=== PATIENT | female | born 1960 | race Caucasian/White ===

== ENCOUNTER 2018-01-27 09:29 | Emergency (ER) | payer MEDICARE, MEDICAID, SELFPAY ==
[2018-01-27 09:30] VITALS: BP 115/84; PULSE 93; RESP 16; TEMP 36.6; O2SAT 98; BMI 18.7
--- NOTE | 2018-01-27 10:02 | RAD_ITS ---
STUDY: X-RAY - LEFT WRIST REASON FOR EXAM: Fall, history of previous fracture. TECHNIQUE: 3 view(s) of the wrist were obtained. COMPARISON: None. FINDINGS: Normal visualized distal radius and ulna. Normal radiocarpal articulation. Normal distal radioulnar articulation. There is a subchondral cyst in the distal pole of the scaphoid. Otherwise, unremarkable carpal bones. Normal carpal articulations. Normal carpometacarpal articulation of the thumb. Normal second through fifth carpometacarpal articulations. Normal visualized metacarpal bones. The soft tissue structures are unremarkable. RAD/Wrist min 3 Views IMPRESSION: Subchondral cyst of the distal pole of the scaphoid. No demonstrated recent fracture. Electronically Signed: Augie Almanza MD at 11:17 EDT Tel , Service support ,
[2018-01-27] MEDS: Naproxen 250 MG Tablet 500 MG PO (10:13)
[2018-01-27] MEDS: HYDROcodone Bitartrate/Apap 5/325 Tablet PO (10:14)
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
[2018-01-27 11:18] VITALS: BP 110/82; PULSE 81; RESP 14; O2SAT 98
== END 2018-01-27 11:19 | disposition home or self-care (01) ==
PROVIDERS: Emergency Provider Emergency Medicine
DX: S60.212A Contusion of left wrist, initial encounter (principal); S16.1XXA Strain of muscle, fascia and tendon at neck level, initial encounter; S46.811A Strain of other muscles, fascia and tendons at shoulder and upper arm level, right arm, initial encounter; K21.9 Gastro-esophageal reflux disease without esophagitis; W18.40XA Slipping, tripping and stumbling without falling, unspecified, initial encounter; Y93.9 Activity, unspecified; Y92.9 Unspecified place or not applicable; Z72.0 Tobacco use; Z79.899 Other long term (current) drug therapy
CPT/HCPCS: 73110; 99283

== ENCOUNTER → 2018-03-05 15:32 | Outpatient (CLI) | payer MEDICARE, MEDICAID, SELFPAY ==
[2018-03-05 18:25] LABS: Amphetamine Urine VISTA NEGATIVE (<1000 ng/mL); Barbiturate Urine VISTA POSITIVE (< 200 ng/mL); Benzodiazepine Urine VISTA NEGATIVE (< 200 ng/mL); Cocaine Urine VISTA NEGATIVE (< 300 ng/mL); Ecstacy Urine VISTA NEGATIVE (< 500 ng/mL); Methadone Urine VISTA NEGATIVE (< 300 ng/mL); PCP Urine VISTA NEGATIVE (< 25 ng/mL); THC Urine VISTA NEGATIVE (< 50 ng/mL); Vista UDS pH Range 6
== END ==
PROVIDERS: Family Provider Internal Medicine; PCP Internal Medicine; Visit Provider Anesthesiology Pain Medicine
DX: F11.20 Opioid dependence, uncomplicated (principal)
CPT/HCPCS: 80307

== ENCOUNTER → 2018-06-12 13:36 | Outpatient (CLI) | payer MEDICARE, MEDICAID, SELFPAY ==
[2018-06-12 15:53] LABS: Amphetamine Urine VISTA POSITIVE (<1000 ng/mL); Barbiturate Urine VISTA NEGATIVE (< 200 ng/mL); Benzodiazepine Urine VISTA NEGATIVE (< 200 ng/mL); Cocaine Urine VISTA NEGATIVE (< 300 ng/mL); Ecstacy Urine VISTA NEGATIVE (< 500 ng/mL); Methadone Urine VISTA NEGATIVE (< 300 ng/mL); PCP Urine VISTA NEGATIVE (< 25 ng/mL); THC Urine VISTA NEGATIVE (< 50 ng/mL); Vista UDS pH Range 5
== END ==
PROVIDERS: Family Provider Internal Medicine; PCP Internal Medicine; Visit Provider Anesthesiology Pain Medicine
DX: F11.20 Opioid dependence, uncomplicated (principal)
CPT/HCPCS: 80307

== ENCOUNTER → 2018-07-02 08:23 | Outpatient (CLI) | payer MEDICARE, MEDICAID, SELFPAY ==
--- NOTE | 2018-07-02 08:50 | BD_ITS ---
STUDY: DUAL ENERGY X-RAY ABSORPTIOMETRY / DXA REASON FOR EXAM: Female, 58 years old. Dictation is postmenopausal. No loss of height. Prior gastric bypass surgery. TECHNIQUE: Bone Mineral Density (BMD) measurements of lumbar spine and bilateral hips were obtained. COMPARISON: None. FINDINGS: Lumbar Spine (L1-L4): g/cm2 (0.724) / T-score (-3.8) / Z-score (-2.8) Findings are suggestive of osteoporosis with a high fracture risk. Left Femur Total: g/cm2 (0.652) / T-score (-2.8) / Z-score (-2.1) Left Femoral Neck: g/cm2 (0.737) / T-score (-2.2) / Z-score (-1.1) Right Femur Total: g/cm2 (0.655) / T-score (-2.8) / Z-score (-2.0) Right Femoral Neck: g/cm2 (0.834) / T-score (-1.5) / Z-score (-0.4) BD/Dexa Bone Density Study IMPRESSION: The patient is considered osteoporotic as outlined below according to World Min Organization (WHO) criteria with a high fracture risk. Reference Information: The T-score is the number of standard deviations above or below the standard which is normal for young adults at their peak bone mineral density. The World Health Organization (WHO) interprets the T-scores as follows: Above -1 Normal bone density Between -1 and -2.5 Osteopenia Equal to / or below -2.5 Osteoporosis As a practical clinical guideline, osteopenia may be graded as follows: Mild -1 through -1.5 Moderate -1.6 through -2.0 Severe -2.1 through -2.4 The Z-score is the number of standard deviations above or below age-matched controls. A Z-score of less than -1.5 would be considered abnormal. References: 1. NIH Osteoporosis and Related Bone Diseases http://www.osteo.org 2. International Society for Clinical Densitometry http://www.iscd.org 3. National Osteoporosis Foundation http://www.nof.org Electronically Signed: Fredy Aguilera MD at 10:42 EDT Tel [phone], Service support ,
== END ==
PROVIDERS: Family Provider Internal Medicine; PCP Internal Medicine; Visit Provider Internal Medicine
DX: M81.0 Age-related osteoporosis without current pathological fracture (principal)
CPT/HCPCS: 77080

== ENCOUNTER 2019-01-05 07:44 | Emergency (ER) | payer MEDICARE, MEDICAID, SELFPAY ==
[2018-11-04 14:56] VITALS: BMI 19.8
[2019-01-05 07:44] VITALS: BP 152/89; PULSE 100; RESP 18; TEMP 36.6; O2SAT 98; BMI 21.2
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
[2019-01-05] MEDS: Ibuprofen 600 MG Tablet PO (09:31)
[2019-01-05 10:15] VITALS: PULSE 90; RESP 16
== END 2019-01-05 10:15 | disposition home or self-care (01) ==
PROVIDERS: Emergency Provider Emergency Medicine
DX: S16.1XXA Strain of muscle, fascia and tendon at neck level, initial encounter (principal); V80.928A Occupant of animal-drawn vehicle injured in other transport accident, initial encounter; Y93.89 Activity, other specified; Y92.410 Unspecified street and highway as the place of occurrence of the external cause; K21.9 Gastro-esophageal reflux disease without esophagitis; Z72.0 Tobacco use
CPT/HCPCS: 72125; 99283; A4216

== ENCOUNTER 2019-04-22 10:39 | Emergency (ER) | payer MEDICARE, MEDICAID, OTHER, SELFPAY ==
[2019-04-22 10:40] VITALS: BP 119/82; PULSE 99; RESP 16; TEMP 36.9; BMI 21.2
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
[2019-04-22] MEDS: HYDROcodone Bitartrate/Apap 5/325 Tablet PO (11:31)
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
[2019-04-22 12:38] VITALS: BP 110/78; PULSE 89; RESP 16; O2SAT 98
== END 2019-04-22 12:40 | disposition home or self-care (01) ==
PROVIDERS: Emergency Provider Emergency Medicine; Family Provider Internal Medicine; PCP Internal Medicine
DX: S73.102A Unspecified sprain of left hip, initial encounter (principal); X50.1XXA Overexertion from prolonged static or awkward postures, initial encounter; Y93.9 Activity, unspecified; Y92.9 Unspecified place or not applicable; M54.9 Dorsalgia, unspecified; G89.29 Other chronic pain; K21.9 Gastro-esophageal reflux disease without esophagitis; G43.909 Migraine, unspecified, not intractable, without status migrainosus; K58.9 Irritable bowel syndrome, unspecified; M81.0 Age-related osteoporosis without current pathological fracture; Z79.899 Other long term (current) drug therapy; Z72.0 Tobacco use
CPT/HCPCS: 72100; 73502; 99283

== ENCOUNTER → 2019-07-07 13:06 | Outpatient (CLI) | payer MEDICARE, MEDICAID, SELFPAY ==
[2019-07-01 11:09] VITALS: BMI 21.2
--- NOTE | 2019-07-07 13:11 | RAD_ITS ---
STUDY: X-RAY - RIGHT HAND REASON FOR EXAM: Female, 59 years old. Hand pain around first MCP area. TECHNIQUE: 3 view(s) of the hand. COMPARISON: None. FINDINGS: There is joint space narrowing of the radiocarpal articulation consistent with degenerative arthrosis. Normal distal radioulnar joint. Normal visualized carpal bones. Normal carpal articulations Normal carpometacarpal articulation of the thumb. Normal second through fifth carpometacarpal joints. Normal metacarpi. There is degenerative arthrosis of the metacarpophalangeal (MCP) joints. There is mild degenerative arthrosis of the interphalangeal joint of the thumb with articular joint space narrowing. Normal proximal and distal phalanges of the thumb. Normal metacarpophalangeal joints of the second through fifth fingers. There is mild diffuse articular joint space narrowing of the proximal and distal interphalangeal joints of the second through fifth fingers, but without erosive changes or periarticular soft tissue swelling. Normal phalanges of the second through fifth fingers. The soft tissue structures are unremarkable. RAD/Hand Min 3 Views IMPRESSION: Degenerative joint disease of the hand and wrist, as described above. Electronically Signed: Anat Head MD at 16:57 EDT Tel , Service support ,
== END ==
PROVIDERS: Family Provider Internal Medicine; PCP Internal Medicine; Referring Provider Nurse Practitioner Family; Visit Provider Nurse Practitioner Family
DX: M79.641 Pain in right hand (principal); M79.644 Pain in right finger(s)
CPT/HCPCS: 73130

== ENCOUNTER → 2019-09-09 12:46 | Outpatient (CLI) | payer MEDICARE, MEDICAID, SELFPAY ==
[2019-09-07 10:08] VITALS: BMI 21.2
[2019-09-09 14:02] LABS: Rheumatoid Factor < 10.0 IU/mL (<15)
[2019-09-10 15:50] LABS: ANTINUCLEAR ANTIBODIES DIRECT Negative (Negative)
== END ==
PROVIDERS: Family Provider Internal Medicine; PCP Internal Medicine; Referring Provider Internal Medicine; Visit Provider Internal Medicine
DX: M19.90 Unspecified osteoarthritis, unspecified site (principal); Z13.828 Encounter for screening for other musculoskeletal disorder
CPT/HCPCS: 36415; 86038; 86225; 86235; 86431

== ENCOUNTER 2019-11-17 11:00 | Outpatient (RCR) | payer MEDICARE, SELFPAY ==
[2019-09-07 10:08] VITALS: BMI 21.2
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
--- NOTE | 2020-01-20 15:27 | HP.PT.NRP ---
EFE TREVINO was seen in my office for initial evaluation on 10/08/19. The following Plan of Care was established for this patient: Initial Frequency: 2x /Week Initial Duration: 4 Weeks Patient/Client Instruction: Educate patient on: Condition, Plan of Care For the Purpose of:: To decrease pain, To increase ROM, To improve muscle performance and motor function, To improve ability to perform ADL's, To increase tolerance to activity/condition/position, To improve ability of physical actions for home/community/work/leisure, To improve health of tissue, To decrease soft tissue restriction, To increase flexibility/ROM, To reduce risk of recurrence, To improve ability to perform tasks related to life management Therapeutic Exercise to Include: Strength training, Body mechanics, Postural training, Flexibilty training, In an aquatic setting, Active ROM, Dynamic Lumbar Stabilization For the Purpose of:: To decrease pain, To increase ROM, To improve muscle performance and motor function, To improve ability to perform ADL's, To increase tolerance to activity/condition/position, To improve ability of physical actions for home/community/work/leisure, To improve health of tissue, To decrease soft tissue restriction, To increase flexibility/ROM, To improve ability to perform tasks related to life management This patient was last seen in our office 11/17/19. Pertinent comments regarding their Physical therapy will appear below: Patient seen for Aquatic therapy ,thus is d/c due to not returning. At this point I will be discontinuing this patient from physical therapy. I would be happy to see this patient again in the future if found appropriate by the physician. Thank you! Mlio Mccoy, PT, Cert MDT, OCS
== END 2019-11-17 19:00 | disposition home or self-care (01) ==
LOC: PT 11:00
PROVIDERS: Family Provider Internal Medicine; PCP Internal Medicine; Referring Provider Anesthesiology Pain Medicine; Visit Provider Anesthesiology Pain Medicine
DX: M46.92 Unspecified inflammatory spondylopathy, cervical region (principal); M50.30 Other cervical disc degeneration, unspecified cervical region; M54.16 Radiculopathy, lumbar region; M51.36 Other intervertebral disc degeneration, lumbar region; M46.96 Unspecified inflammatory spondylopathy, lumbar region; M79.10 Myalgia, unspecified site; G89.4 Chronic pain syndrome
CPT/HCPCS: 97113; 97162; 97164

== ENCOUNTER → 2019-11-19 10:41 | Outpatient (CLI) | payer MEDICARE, MEDICAID, SELFPAY ==
[2019-09-07 10:08] VITALS: BMI 21.2
--- NOTE | 2019-11-19 10:44 | BI_ITS ---
MAMMOGRAPHY - BILATERAL SCREENING REASON FOR EXAM: Female, 59 years old. Routine annual screening examination. PERTINENT HISTORY: Mother with breast cancer. Remote bilateral excisional breast biopsies. TECHNIQUE: Digital bilateral breast aldair (3D mammographic acquisition) in the CC and MLO projections. 2-D mediolateral oblique (MLO) and craniocaudad (CC) views of both breasts were obtained. CAD: Full Field Digital Mammography with Computer Added Detection was performed. COMPARISON: Comparison is made with prior outside examination dated April 15, 2012. FINDINGS: Breast Composition: The breasts are heterogeneously dense, which may obscure small masses. There are no dominant masses or suspicious calcifications. No other significant abnormalities are identified. There has been no significant change since the prior study. BI/SCREEN MAMM (CAD) W/ALDAIR BILAT IMPRESSION: Stable bilateral screening mammogram. Yearly follow-up mammogram recommended. (A) ASSESSMENT CATEGORY: BIRADS Category 1: Negative. A letter regarding these results will be sent to the patient by the facility within 30 days. Approximately 10% of breast cancers are not detected by mammography. A normal mammogram should not delay biopsy of a clinically suspicious abnormality. [id number] Electronically Signed: Fredy Aguilera, at 12:16 EST , Service support ,
== END ==
PROVIDERS: Family Provider Internal Medicine; PCP Internal Medicine; Referring Provider Internal Medicine; Visit Provider Internal Medicine
DX: Z12.31 Encounter for screening mammogram for malignant neoplasm of breast (principal)
CPT/HCPCS: 77063; 77067

== ENCOUNTER → 2020-05-10 10:23 | Outpatient (CLI) | payer MEDICARE, MEDICAID, SELFPAY ==
[2020-05-09 12:56] VITALS: BMI 21.2
--- NOTE | 2020-05-10 10:24 | RAD_ITS ---
STUDY: X-RAY CHEST REASON FOR EXAM: Female, 59 years old. COUGH, CHEST CONGESTION, FEVER TECHNIQUE: PA and lateral views of the chest. COMPARISON: 2013 FINDINGS: Lungs are expanded, there is subtle opacification in the lingula but this is unchanged in the previous study and likely represents fibrotic scarring. There is no demonstrated pleural abnormality. Normal size heart. Normal mediastinum and brenda. Normal visualized pulmonary arteries. Normal visualized aortic arch and descending thoracic aorta. Normal visualized thoracic spine. Normal visualized ribs, clavicles, and shoulders. There is no demonstrated abnormality of the visualized soft tissue structures of the upper abdomen. RAD/Chest PA and Lateral IMPRESSION: No acute pulmonary process, no interval change Electronically Signed: Armin Rueda MD at 11:00 EDT , Service support ,
== END ==
PROVIDERS: PCP Internal Medicine; Referring Provider Internal Medicine; Visit Provider Internal Medicine
DX: R05 Cough (principal); R09.89 Other specified symptoms and signs involving the circulatory and respiratory systems; R50.9 Fever, unspecified; Z20.828 Contact with and (suspected) exposure to other viral communicable diseases
CPT/HCPCS: 71046; 87635; G2023; U0003

== ENCOUNTER 2021-01-18 13:01 | Emergency (ER) | payer MEDICARE, MEDICAID, SELFPAY ==
[2020-05-09 12:56] VITALS: BMI 21.2
[2021-01-18 13:02] VITALS: BP 156/81; PULSE 88; RESP 18; TEMP 36.6; O2SAT 96; BMI 21.2
--- NOTE | 2021-01-18 13:28 | CT_ITS ---
STUDY: CT CERVICAL SPINE WITHOUT CONTRAST REASON FOR EXAM: Female, 60 years old. Injury/Pain. RADIATION DOSAGE (If Supplied By Facility): CTDIvol = ( 11.97 ) mGy, DLP = ( 195.07 ) mGycm TECHNIQUE: High resolution transaxial imaging was performed without contrast material. Sagittal and coronal images were reconstructed. Individualized dose optimization techniques were used for this CT. COMPARISON: Comparison is made with prior examination dated 01/05/2019. FINDINGS: Normal craniovertebral junction. There are degenerative changes of the anterior atlantoaxial articulation. Normal odontoid process. There is straightening of the normal cervical lordosis. Normal vertebral bodies and posterior osseous elements. C2-3: Minimal anterior listhesis of C2 on C3 most likely secondary to the facet joint osteoarthritis. C3-4: Marked degree of disc space narrowing and mild spondylosis. Uncovertebral arthrosis. Moderate degree of bilateral neural foraminal stenosis slightly worse on the left side. C4-5: Marked degree of disc space narrowing and disc degeneration. Uncovertebral arthrosis. Moderate degree of bilateral neural foraminal stenosis worse on the left side. C5-6: Marked degree of disc space narrowing and spondylosis. Uncovertebral arthrosis. Mild degree of bilateral neural foraminal stenosis. C6-7: Mild degree of disc space narrowing. No significant stenosis is seen. C7-T1: Normal endplates. Normal disc height and morphology. Normal central canal and intervertebral neuroforamina. Normal visualized soft tissue structures. CT/Spine Cervical without Contras IMPRESSION: Multilevel degenerative changes, as described above. Electronically Signed: Fredy Aguilera MD at 14:23 EDT , Service support ,
[2021-01-18] MEDS: morphine 8 MG/ML Syringe IM (13:41)
--- NOTE | 2021-01-18 15:00 | ED.VISSUMM ---
- ER Visit Summary Date of Service: 01/18/21 Chief Complaint: Neck pain History of Present Illness: The patient is a 60 F who reports that she has chronic neck pain and is in the process of seeing Dr. Graham. She is unsure if this is pain management or a surgeon. States that today she reached into her car and felt a pop in her neck and her pain is worse than usual. Is an aching pain is 10 of 10 at worst and a 10 currently. Is worsened by movement. She is used ice and heat without relief. She also reports that she has had no relief with her ibuprofen or [place]. Patient reports the pain radiates down the back of her right arm to approximately her elbow. She denies any numbness or weakness. She has had similar symptoms previously. Physical Examination: Vitals: Stable. Afebrile. General: Well-nourished and well-developed. Head: Normocephalic atraumatic. Neck: Supple, no lymphadenopathy. No JVD. Moderate diffuse tenderness palpation over the entire C-spine and in the paraspinous muscular. Moderate tenderness palpation right trapezius muscle. 5 out of 5 asset coordinator bilaterally 5 out of 5 biceps and triceps strength bilaterally normal sensation to light touch in C5-T1 distribution. Normal median/ulnar/radial nerve function. 2+ radial pulse. Cardiovascular: Regular rate and rhythm. No murmurs. Respiratory: No respiratory distress. Clear to auscultation bilaterally. Abdominal: Soft, nontender, nondistended, normal bowel sounds. No guarding, rebound, or peritoneal signs. Back: Nontender. Extremities: Nontender, no edema. Skin: Normal color, no rash. Neurologic: Alert and oriented ?3. Cranial nerves II through XII are intact. Normal strength and sensation. Psych: Normal affect. Test Results: Clinical Impression(s) from Imaging Studies Cervical Spine CT 01/18/21 13:28 IMPRESSION: Multilevel degenerative changes, as described above. Electronically Signed: Fredy Aguilera MD at 14:23 EDT , Service support , Emergency Department Course and Treatment: Patient was given a dose of morphine IM. She is resting more comfortably. Treatment Plan: Patient will be discharged instructions to follow-up with the spine surgeon and/or pain management in 3 to 5 days if not improving. Return to the emergency department for any worsening symptoms. Disposition: To home in improved and stable condition. Impression: 1. Acute on chronic neck pain. This note was generated with [employer] dictation software. It may contain incorrect words, spelling, and punctuation that were not noted in review of the chart prior to signing ED Disposition - Plan for ED Patient: Instructions: ED Back and Neck Pain, General Referrals: Doctor,Your [STAFF PHYSICIAN] - 3-5 Days if not improving
[2021-01-18 15:19] VITALS: BP 99/84; PULSE 81; RESP 14; O2SAT 98
== END 2021-01-18 15:20 | disposition home or self-care (01) ==
PROVIDERS: Emergency Provider Emergency Medicine; PCP Internal Medicine
DX: M54.2 Cervicalgia (principal); G89.29 Other chronic pain; F17.200 Nicotine dependence, unspecified, uncomplicated
CPT/HCPCS: 72125; 96372; 99283

== ENCOUNTER 2022-04-05 12:41 | Emergency (ER) | payer MEDICARE, SELFPAY ==
[2022-04-05 12:42] VITALS: BP 141/75; PULSE 94; RESP 18; TEMP 36.4; O2SAT 97; BMI 20.3
--- NOTE | 2022-04-05 13:13 | RAD_ITS ---
STUDY: X-RAY - right KNEE REASON FOR EXAM: 61-year-old female patient with history of knee pain and bruising following a fall., TECHNIQUE: 2 view(s) of the knee. COMPARISON: None. FINDINGS: Normal visualized distal femur. Normal visualized proximal tibia and fibula. Normal proximal tibiofibular articulation. Normal medial femorotibial compartment. Normal lateral femorotibial compartment. Normal patellofemoral articulation. Prepatellar soft tissue swelling. RAD/Knee 1 or 2 Views IMPRESSION: Prepatellar soft tissue swelling. Electronically Signed: Fredy Aguilera MD at 13:44 EDT ,
--- NOTE | 2022-04-05 13:56 | EDS_ITS ---
HPI History of Present Illness Chief Complaint: Lower Extremity Injury Informant: patient Narrative Narrative: 61-year-old female states that yesterday she tripped over the baby gate landing all of her weight onto her right bent knee. She notes swelling and bruising and pain. She has been icing and using Tylenol and Motrin. She describes the pain as burning and states that usually the type of pain she has when she has a broken bone. [facility] Medical History (Updated 04/05/22 @ 13:[address] Kirit Arriaza, ) Anemia Anxiety Arthritis Chronic back pain Chronic bronchitis GERD (gastroesophageal reflux disease) History of pneumonia Hypocalcemia IBS (irritable bowel syndrome) Migraines Osteoporosis Seasonal allergies Stomach ulcer Home Medications calcium carbonate 500 mg-vitamin D3 10 mcg (400 unit) tablet 1 tab PO DAILY 04/27/14 [History Last Taken Unknown] multivitamin 1 cap PO QAM 02/18/18 [History Last Taken Unknown] ibuprofen 800 mg tablet 800 mg PO TID PRN PRN Pain ##20 01/05/19 [Rx Last Taken Unknown] denosumab 60 mg/mL subcutaneous syringe 60 mg SQ 04/22/19 [History Last Taken Unknown] gabapentin 100 mg capsule 300 mg PO TID 09/07/19 [History Last Taken Unknown] promethazine 12.5 mg tablet 12.5 mg PO TID PRN nausea and vomiting ##20 12/04/19 [Rx Last Taken Unknown] sucralfate 1 gram tablet See Rx Instructions .Route .COMPLEX ##90 12/04/19 [Rx Last Taken Unknown] valacyclovir 500 mg tablet 500 mg PO DAILY ##90 12/04/19 [Rx Last Taken Unknown] buspirone 15 mg tablet 15 mg PO TID 3 months ##270 02/29/20 [Rx Last Taken Unknown] rizatriptan 10 mg tablet See Rx Instructions PO .COMPLEX ##10 03/16/20 [Rx Last Taken Unknown] cyclobenzaprine 10 mg tablet 10 mg PO TID PRN muscle spasm ##90 04/25/20 [Rx Las t Taken Unknown] dextromethorphan-guaifenesin 15 mg-400 mg tablet 1 tab PO Q4H PRN cough #60 tabs 05/10/20 [Rx Last Taken Unknown] trazodone 50 mg tablet 50 mg PO QHS PRN insomnia ##60 09/29/20 [Rx Last Taken Unknown] omeprazole 20 mg tablet,delayed release 40 mg PO QDAY 01/18/21 [History Last Taken Unknown] hydrocodone-acetaminophen 5-325mg 5mg-325mg 1 tab PO Q8H PRN Pain 3 days #9 TABLETS 04/05/22 [Rx Last Taken Unknown] Allergy/AdvReac Type Severity Reaction Status Date / Time nalbuphine HCl [From Nubain] Allergy Rash Verified 04/05/22 12:42 ketorolac [From Toradol] AdvReac Itching Verified 04/05/22 12:42 metoclopramide [From Reglan] AdvReac Other Verified 04/05/22 12:42 ondansetron HCl [From Zofran] AdvReac Other Verified 04/05/22 12:42 Family History Mother Cancer ovarian Osteoporosis Hyperlipemia Anemia Sister Anemia Hyperlipemia Father Heart disease Myocardial infarction Cancer lung Grandmother Diabetes Brother Diabetes Surgical History History of breast biopsy History of cholecystectomy History of hysterectomy History of rotator cuff surgery Social History Smoking Status: Light Smoker (<10/day) Tobacco: How many years used: 20 alcohol intake: never substance use type: does not use what type of physical activity do you participate in: walking frequency: 3-4 times per week ROS ROS ED Constitutional Constitutional ED: Denies chills or weight loss Eyes Eyes: Denies change in vision or diplopia ENT ENT ED: Denies ear pain, rhinorrhea or sore throat Cardiovascular Cardiovascular: Denies chest pain, orthopnea, palpitations or racing heartbeat Respiratory/Chest Respiratory/Chest: Denies cough, dyspnea or orthopnea Gastrointestinal Gastrointestinal: Denies abdominal pain, diarrhea, nausea or vomiting Genitourinary Genitourinary ED: Denies dysuria, hematuria or urinary frequency Musculoskeletal Musculoskeletal: Reports other Details: See history of present illness ; Denies arthralgias or myalgias Integumentary Denies abscess or rash Neurologic Neurologic: Denies headache(s) or weakness Psychiatric Psychiatric: Denies anxiety, depression, suicidal ideation or suicidal thoughts Endocrine Endocrinology: Denies polydipsia, polyphagia or polyuria Allergic/Immunologic Allergic/Immunologic ED: Denies mouth swelling, tongue swelling or urticaria EXAM Physical Exam Const Vital Signs: 04/05/22 12:42 Temperature 97.5 F L Temperature Source Temporal Pulse Rate 94 Respiratory Rate 18 Blood Pressure 141/75 H Blood Pressure Mean 97 Pulse Ox 97 Oxygen Delivery Method Room Air Positive well nourished and well developed General Appearance ED: well developed HEENT Reports normocephalic, head/scalp atraumatic and moist mucous membranes Eyes PERRL and EOMs intact bilaterally Neck no lymphadenopathy, supple and no JVD Resp normal respiratory effort and clear to auscultation bilaterally Cardio regular rate, regular rhythm and no murmurs GI normal to inspection, nondistended, normoactive bowel sounds and non-tender Palpation: soft Back/Spine no CVA tenderness and normal ROM Extremity Extremity Narrative: Right knee demonstrates no effusion. There is ligamentous stability. There is purple ecchymosis around the patella. Extensor mechanism is intact. General Extremety ED: Negative for edema General Extremity: Negative for edema Neuro oriented x3 and CN's II-XII intact bilaterally Sensorium / Orientation: alert Motor Exam: strength 5/5 throughout Psych mental status grossly normal Mood & Affect: Negative for depressed or tearful Skin no rashes or lesions noted and no wounds MDM MDM MDM Narrative Medical decision making narrative: Patient will use an Jamie wrap and ice. I will write for some pain medication. Supportive care at home return if worsening or concerns Radiography Diagnostic Testing: Clinical Impression(s) from Imaging Studies Knee X-Ray 04/05/22 13:13 IMPRESSION: Prepatellar soft tissue swelling. Electronically Signed: Fredy Aguilera MD at 13:44 EDT , Discharge Plan Triage Chief Complaint: Lower Extremity Injury ED Provider: Kirit Arriaza Dx/Rx/DC Orders Clinical Impression: Contusion of knee, right Instructions: Bone Contusion Prescriptions: New hydrocodone-acetaminophen [hydrocodone-acetaminophen] 1 TABLET tablet 1 tab PO Q8H PRN (Reason: Pain) 3 Days Qty: 9 0RF No Action multivitamin capsule capsule 1 cap PO QAM gabapentin 100 mg capsule 300 mg PO TID valacyclovir 500 mg tablet 500 mg PO DAILY Qty: 90 2RF sucralfate 1 gram tablet See Rx Instructions .ROUTE .COMPLEX Qty: 90 2RF Dose Instruction: TAKE 1 TABLET BY MOUTH 4 TIMES DAILY NEEDED FOR ABDOMINAL PAIN Rx Instructions: TAKE 1 TABLET BY MOUTH 4 TIMES DAILY NEEDED FOR ABDOMINAL PAIN promethazine 12.5 mg tablet 12.5 mg PO TID PRN (Reason: nausea and vomiting) Qty: 20 0RF calcium carbonate-vitamin D3 1 EACH tablet 1 tab PO DAILY ibuprofen 800 MG tablet 800 mg PO TID PRN PRN (Reason: Pain) Qty: 20 0RF denosumab 60 MG/ML syringe 60 mg SQ Rx Instructions: EVERY 6 MONTHS omeprazole 20 MG tablet,delayed release (DR/EC) 40 mg PO QDAY buspirone 15 mg tablet 15 mg PO TID 90 Days Qty: 270 2RF rizatriptan 10 mg tablet See Rx Instructions PO .COMPLEX Qty: 10 3RF Dose Instruction: take 1 tab at onset of headache; if no relief may repeat 1 tab in 2hr; max = 3 tabs/day (24hr) PO Rx Instructions: take 1 tab at onset of headache; if no relief may repeat 1 tab in 2hr; max = 3 tabs/day (24hr) PO cyclobenzaprine 10 mg tablet 10 mg PO TID PRN (Reason: muscle spasm) Qty: 90 3RF dextromethorphan-guaifenesin 15 mg-400 mg tablet 15-400 mg tablet 1 tab PO Q4H PRN (Reason: cough) Qty: 60 0RF trazodone 50 mg tablet 50 mg PO QHS PRN (Reason: insomnia) Qty: 60 1RF Primary Care Provider: Sylwia Pritchett Referrals: Sylwia Pritchett MD [Primary Care Provider] - As Needed Disposition Disposition: Home, Self Care
[2022-04-05 14:11] VITALS: RESP 18
== END 2022-04-05 14:12 | disposition home or self-care (01) ==
PROVIDERS: Emergency Provider Emergency Medicine; PCP Internal Medicine; Visit Provider Emergency Medicine
DX: S80.01XA Contusion of right knee, initial encounter (principal); F17.200 Nicotine dependence, unspecified, uncomplicated; W18.40XA Slipping, tripping and stumbling without falling, unspecified, initial encounter
CPT/HCPCS: 73560; 99282